=== PATIENT | male | born 1970 | race Caucasian/White ===

== ENCOUNTER 2017-05-14 17:55 | Emergency (ER) | payer OTHER ==
[2017-05-14 18:01] VITALS: BP 130/93; PULSE 101; RESP 18; TEMP 98.9; O2SAT 97
--- NOTE | 2017-05-14 18:39 | ED PDOC ---
HPI: Psych/Substance Abuse Time Seen by Provider: 05/14/17 18:00 Chief Complaint (Nursing): Alcohol Ingestion Chief Complaint (Provider): ETOH History Per: Patient Additional Complaint(s): 47 yo male, no PMH, presents to ED sor suspected ETOH intoxication. Pt alert, awake, calm and cooperative, admits to drinking "a lot of beers today." Pt speaking in clear and full sentences, ambulates with steady gait. Pt notes he left the bar, sat down to rest and fell asleep. next thing he knew he was being woken up and told t come into ambulance. Pt offers no physical complaints a this time. Past Medical History Reviewed: Nursing Documentation, Vital Signs Vital Signs: Last Vital Signs Temp 98.9 F 05/14/17 18:00 Pulse 101 H 05/14/17 18:00 Resp 18 05/14/17 18:00 BP 130/93 H 05/14/17 18:00 Pulse Ox 97 05/14/17 18:00 - Medical History PMH: No Chronic Diseases - Surgical History Surgical History: No Surg Hx - Family History Family History: States: No Known Family Hx - Living Arrangements Living Arrangements: With Family - Social History Current smoker - smoking cessation education provided: No Alcohol: Occasional Drugs: Denies - Immunization History Hx Tetanus Toxoid Vaccination: Yes Hx Influenza Vaccination: Yes Hx Pneumococcal Vaccination: Yes - Home Medications Home Medications: Ambulatory Orders Medication Instructions Recorded No Known Home Med 11/03/15 - Allergies Allergies/Adverse Reactions: Allergies Allergy/AdvReac Type Severity Reaction Status Date / Time No Known Allergies Allergy Unverified 11/03/15 03:31 Review of Systems ROS Statement: Except As Marked, All Systems Reviewed And Found Negative Physical Exam - Reviewed Nursing Documentation Reviewed: Yes Vital Signs Reviewed: Yes - Physical Exam Appears: Positive for: Well, Non-toxic, No Acute Distress Head Exam: Positive for: ATRAUMATIC, NORMAL INSPECTION, NORMOCEPHALIC Skin: Positive for: Normal Color, Warm, DRY Eye Exam: Positive for: EOMI, Normal appearance, PERRL ENT: Positive for: Normal ENT Inspection Neck: Positive for: Normal, Painless ROM Cardiovascular/Chest: Positive for: Regular Rate, Rhythm Respiratory: Positive for: CNT, Normal Breath Sounds Gastrointestinal/Abdominal: Positive for: Normal Exam, Bowel Sounds, Soft Back: Positive for: Normal Inspection Extremity: Positive for: Normal ROM Neurologic/Psych: Positive for: Alert, Oriented - ECG O2 Sat by Pulse Oximetry: 97 Medical Decision Making Medical Decision Making: Pt without any physical complaints. Exam is benign. Pt able to ambulate with steady gait, and speaking in full sentences. Appears clinically sober at this time, no medical intervention needed. stable for discharge Disposition - Clinical Impression Clinical Impression: Alcohol abuse - Patient ED Disposition Is Patient to be Admitted: No - Disposition Disposition: Routine/Home Disposition Time: 18:39 Condition: STABLE Instructions: Alcohol Intoxication (ED) Forms: [facility] ([place]) Print Language: DANISH - POA Present On Arrival: None
== END 2017-05-14 18:35 | disposition home or self-care (01) ==
LOC: H.ER 17:55
DX: F10.10 Alcohol abuse, uncomplicated (principal)